=== PATIENT | female | born 1990 | race African-American/Black ===

== ENCOUNTER 2017-10-18 00:12 | Emergency (ER) | payer OTHER ==
[~2017-10-18] VITALS: Ht 170.2 cm; Wt 73.9 kg
[~2017-10-18 00:12] MED LIST: ACCUNEB SO1.25 MG/1 INH; HYDROCODONE-AP1 EAC6 PO; PREDNISONE50 MG PO; ZOFRAN ODT4 MG PO
[2017-10-18] MEDS ORDERED: PREDNISONE 20 M20 MG PO (01:38)
[2017-10-18 01:53] VITALS: BP 132/86
== END 2017-10-18 01:54 | disposition home or self-care (01) ==
LOC: ER 00:12
DX: M25.531 Pain in right wrist (principal); M25.532 Pain in left wrist; J45.909 Unspecified asthma, uncomplicated; F17.210 Nicotine dependence, cigarettes, uncomplicated

== ENCOUNTER 2019-06-07 01:32 | Emergency (ER) | payer OTHER ==
[~2019-06-07] VITALS: Ht 170.2 cm; Wt 74.8 kg
[~2019-06-07 01:32] MED LIST changes: +PREDNISONE 20 M20 MG PO
[2019-06-07] MEDS ORDERED: ACYCLOVIR 400400 MG PO (01:40)
[2019-06-07 02:50] LABS: ABSOLUTE NEUTROPHILS 4.8 thou/uL (1.4-8.2); BASOPHILS 0.5 % (0.0-2.0); HEMATOCRIT 35.9 % (37.0-47.0); HEMOGLOBIN 11.7 gm/dL (12.0-15.0); LYMPHOCYTES 21.9 % (24.0-44.0); MCH 29.3 pg (26.0-34.0); MCHC 32.7 g/dL (28.0-37.0); MCV 89.6 fL (80.0-100.0); PLATELET COUNT 276 thou/uL (150-400); POLYS 68.6 % (36.0-66.0); RBC 4.01 mil/uL (4.20-5.00); RDW 12.7 % (10.5-14.5)
[2019-06-07 02:58] LABS: ANION GAP 7 mmol/L (7-16); BUN 11 mg/dL (7-18); CALCIUM 8.5 mg/dL (8.5-10.1); CHLORIDE 106 mmol/L (98-107); CO2 27 mmol/L (21-32); GLUCOSE 97 mg/dL (74-106); SODIUM 140 mmol/L (136-145)
[2019-06-07 03:08] LABS: ALBUMIN 2.6 g/dL (3.4-5.0); LIPASE 65 U/L (73-393); SGOT 22 U/L (15-37); SGPT 22 U/L (30-65); TOTAL BILIRUBIN 0.3 mg/dL (<0.1-1.0); TROPONIN-I <0.06 ng/mL (<0.06)
[2019-06-07 03:32] LABS: URINE BILIRUBIN NEGATIVE (Negative); URINE BLOOD 1+ (Negative); URINE CLARITY CLEAR; URINE COLOR YELLOW; URINE GLUCOSE-RANDOM* NEGATIVE (Negative); URINE KETONES NEGATIVE (Negative); URINE LEUKOCYTES-REFLEX NEGATIVE (Negative); URINE NITRITE-REFLEX NEGATIVE (Negative); URINE PROTEIN (DIPSTICK) 2+ (Negative); URINE SPECIFIC GRAVITY >= 1.030 (1.005-1.035); URINE UROBILINOGEN 0.2 E.U./dl (0.2-1.0)
[2019-06-07 03:41] LABS: CASTS None Seen /LPF (None Seen); MUCUS 4-6 Moderate strn/LPF (None Seen); SQUAMOUS >10 Many /LPF (0-3)
[2019-06-07 03:42] LABS: AMORPHOUS URATES Moderate /LPF (None Seen); CRYSTALS None Seen /LPF (None Seen); URINE RBC 3-10 Few /HPF (0-2); URINE WBC-REFLEX 0-5 Rare /HPF (0-5)
[2019-06-07 06:23] VITALS: BP 110/62
--- NOTE | 2019-06-07 12:56 | EKG ---
[address] [address] ELECTROCARDIOGRAM REPORT Name: ESTRELLITA WEISS [facility] [id number] Admission: 06/07/19 Attend Phys: Discharge: 06/07/19 Date of : [birth year] Report #: [id number] THIS REPORT FOR: //name// [facility] ED Test Date: 2019-06-07 Test Time: 02:25:28 Pat Name: ESTRELLITA WEISS Department: Room: Gender: F Operating Room Tech: JESUS MANUEL : 1990 Requested By: Navene Holland Order Number: [id number] MD: Jose Cruz Dill Measurements Intervals [place] Rate: 71 P: -13 UT: 179 QRS: 51 QRSD: 88 T: 51 QT: 407 QTc: 443 Interpretive Statements Sinus rhythm Normal tracing No previous ECG available for comparison Electronically Signed On 06-07-2019 12:56:01 BIRD RAISER by Jose Cruz Dill [email or web address] <ELECTRONICALLY SIGNED> By: Jose Cruz Dill MD, [facility] 06/07/19 1256 0225 0225 Jose Cruz Dill MD, FACC /EPI
== END 2019-06-07 06:20 | disposition home or self-care (01) ==
LOC: ER 01:32
PROVIDERS: Emergency Medicine
DX: R07.89 Other chest pain (principal); R79.1 Abnormal coagulation profile; J45.909 Unspecified asthma, uncomplicated; F17.210 Nicotine dependence, cigarettes, uncomplicated

== ENCOUNTER 2019-06-09 02:02 | Emergency (ER) | payer OTHER ==
[~2019-06-09] VITALS: Ht 170.2 cm; Wt 74.8 kg
[~2019-06-09 02:02] MED LIST changes: +ACYCLOVIR 400400 MG PO
[2019-06-09 02:52] LABS: ABSOLUTE NEUTROPHILS 2.9 thou/uL (1.4-8.2); BASOPHILS 0.6 % (0.0-2.0); EOSINOPHILS 4.4 % (0.0-3.0); HEMATOCRIT 37.3 % (37.0-47.0); HEMOGLOBIN 12.3 gm/dL (12.0-15.0); LYMPHOCYTES 29.1 % (24.0-44.0); MCH 29.2 pg (26.0-34.0); MCHC 32.9 g/dL (28.0-37.0); MCV 88.9 fL (80.0-100.0); MONOCYTES 6.4 % (1.0-8.0); PLATELET COUNT 311 thou/uL (150-400); POLYS 59.5 % (36.0-66.0); RBC 4.19 mil/uL (4.20-5.00); RDW 12.8 % (10.5-14.5); WBC 4.9 thou/uL (4.0-11.0)
[2019-06-09 02:56] LABS: ANION GAP 10 mmol/L (7-16); BUN 11 mg/dL (7-18); CALCIUM 8.4 mg/dL (8.5-10.1); CHLORIDE 107 mmol/L (98-107); CO2 23 mmol/L (21-32); GLUCOSE 87 mg/dL (74-106); POTASSIUM 3.8 mmol/L (3.5-5.1); SODIUM 140 mmol/L (136-145)
[2019-06-09 03:05] LABS: ALBUMIN 2.8 g/dL (3.4-5.0); LIPASE 49 U/L (73-393); SGOT 20 U/L (15-37); SGPT 21 U/L (30-65); TOTAL BILIRUBIN 0.2 mg/dL (<0.1-1.0); TROPONIN-I <0.06 ng/mL (<0.06)
[2019-06-09 03:52] LABS: URINE BILIRUBIN NEGATIVE (Negative); URINE BLOOD 2+ (Negative); URINE CLARITY CLEAR; URINE COLOR YELLOW; URINE GLUCOSE-RANDOM* NEGATIVE (Negative); URINE KETONES NEGATIVE (Negative); URINE LEUKOCYTES-REFLEX NEGATIVE (Negative); URINE NITRITE-REFLEX NEGATIVE (Negative); URINE PROTEIN (DIPSTICK) 2+ (Negative); URINE UROBILINOGEN 0.2 E.U./dl (0.2-1.0)
[2019-06-09 04:04] LABS: BACTERIA-REFLEX 1-9 Few /HPF (None Seen); CELLULAR CASTS 0-3 Few /LPF (None Seen); CRYSTALS None Seen /LPF (None Seen); MUCUS 0-3 Light strn/LPF (None Seen); SQUAMOUS 4-10 Moderate /LPF (0-3); URINE RBC 3-10 Few /HPF (0-2); URINE WBC-REFLEX 0-5 Rare /HPF (0-5)
[2019-06-09] MEDS ORDERED: ONDANSETRON ODT8 MG PO (04:37)
[2019-06-09] MEDS ORDERED: TRAMADOL 50 MG50 MG PO (04:37)
[2019-06-09 04:54] VITALS: BP 129/69
--- NOTE | 2019-06-09 08:40 | EKG ---
[address] [address] ELECTROCARDIOGRAM REPORT Name: ESTRELLITA WEISS [facility] [id number] Admission: 06/09/19 Attend Phys: Discharge: 06/09/19 Date of : [birth year] Report #: [id number] THIS REPORT FOR: //name// [facility] ED Test Date: 2019-06-09 Test Time: 02:35:44 Pat Name: ESTRELLITA WEISS Department: Room: Gender: F Production Control Clerk: elizabeth : 1990 Requested By: Tru Hernández Order Number: [id number] MD: Ashvin Costa Measurements Intervals [place] Rate: 71 P: 62 IN: 186 QRS: 50 QRSD: 77 T: 49 QT: 403 QTc: 438 Interpretive Statements Sinus rhythm Ventricular premature complex Probable left atrial enlargement Compared to ECG 06/07/2019 02:25:28 Ventricular premature complex(es) now present Electronically Signed On 06-09-2019 8:40:15 [employer] by Ashvin Costa [email or web address] <ELECTRONICALLY SIGNED> By: Ashvin Costa MD 06/09/19 0840 [id number] 0235 Ashvin Costa MD /NATASHA
== END 2019-06-09 04:55 | disposition home or self-care (01) ==
LOC: ER 02:02
PROVIDERS: Emergency Medicine
DX: E88.09 Other disorders of plasma-protein metabolism, not elsewhere classified (principal); R10.11 Right upper quadrant pain; J45.909 Unspecified asthma, uncomplicated; F17.210 Nicotine dependence, cigarettes, uncomplicated